=== PATIENT | male | born 1945 | race Caucasian/White ===

== ENCOUNTER 2016-05-18 20:18 | Observation (INO) | payer OTHER, BC ==
[~2016-05-18] VITALS: Ht 170.2 cm; Wt 87.5 kg
[~2016-05-18 20:18] MED LIST: ADULT LOW DOSE81 M1 PO; ALBUTEROL SULF8.5 GM IH; ALPRAZOLAM0.5 MG PO; AMITRIPTYLINE H25 MG PO; AMLODIPINE BESYL5 MG PO; ANUSOL HC,ANUCO25 MG PR; ASPIR-LOW81 MG PO; ASPIRIN325 MG PO; ASPIRIN81 M1 PO; ASPIRIN81 M2 PO; AVENTYL,PAMELOR25 MG PO; Aspirin E.C. PO; CARAFATE1 GM PO; CARBAMAZEPINE200 MG PO; CARDIZEM CD,CA180 MG PO; CARDIZEM CD180 MG PO; CELEBREX200 MG PO; CINNAMON500 MG PO; CLONAZEPAM1 MG PO; CLOPIDOGREL75 MG PO; COLACE100 MG PO; CORDARONE200 MG PO; COUMADIN,JANTOVE2 MG PO; CRESTOR10 MG PO; CRESTOR20 MG PO; CYMBALTA20 MG PO; CYMBALTA30 MG PO; DAILY VITE1 EAC1 PO; DERMATRAN TP; DIABETA,MICRONAS5 MG PO; DIABETA5 MG PO; DICYCLOMINE HCL20 MG PO; DIGOX125 MCG PO; DILAUDID2 MG PO; DILAUDID4 MG PO; DILTIAZEM 24HR180 MG PO; Diabeta,Micronase PO; ELAVIL25 MG PO; ENDOCET 5-3251 EACH PO; FORTAMET1000 M1 PO; FUROSEMIDE20 MG PO; GABAPENTIN300 MG PO; GLUCOPHAGE1000 MG PO; GLUCOVANCE 51 TABLET PO; GLYBURIDE PO; GLYBURIDE5 MG PO; HUMALOG100 UNIT/1 SC; HUMALOG100 UNIT/2 SC; HYDROMORPHONE HC2 MG PO; IMDUR30 MG PO; ISOSORBIDE MONO30 MG PO; LANTUS 10100 UNITS/ SC; LANTUS 10100 UNITS/ SQ; LANTUS 3 M100 UNITS1 SC; LASIX20 MG PO; LISINOPRIL10 MG PO; LISINOPRIL5 MG PO; LO-DOSE ASPIRIN81 M1 PO; LOPRESSOR100 M1 PO; LOPRESSOR25 MG PO; LOPRESSOR50 MG PO; LOW DOSE ASPIRI81 M1 PO; LYRICA150 MG PO; LYRICA200 MG PO; LYRICA25 MG PO; LYRICA50 MG PO; LYRICA75 MG PO; Lopressor PO; MELOXICAM15 MG PO; MEN'S MULTI-VI1 EACH PO; METFORMIN HCL1000 M1 PO; METFORMIN HCL1000 MG PO; METOPROLOL SUCC25 MG PO; MULTIPLE VITAM1 EAC1 PO; MULTIPLE VITAM1 EACH PO; NITROGLYCERIN0.4 MG SL; NITROSTAT0.4 MG SL; NORVASC5 MG PO; NovoLOG, HumaLOG SC; ONE DAILY TABL1 EAC1 PO; OXYCODONE5 MG PO; PANTOPRAZOLE SO40 MG PO; PERCOCET 5/31 TABLET PO; PHENERGAN-CODE120 ML PO; PLAVIX75 MG PO; PRADAXA150 MG PO; PRAVACHOL20 MG PO; PREDNISONE20 MG PO; PRILOSEC20 MG PO; PRINIVIL10 MG PO; PRINIVIL5 MG PO; PROTONIX40 MG PO; Plavix PO; Pradaxa PO; REFRESH TEARS15 ML BOTH EYES; REFRESH TEARS15 ML RIGHT EYE; ROXICET 5-3251 EACH PO; ST. JOSEPH ASPI81 MG PO; STOOL SOFTENER100 MG PO; SUCRALFATE1 GM PO; TOPROL XL25 MG PO; TOPROL XL50 MG PO; TRAMADOL HCL50 MG PO; TRILEPTAL300 MG PO; TYLENOL EXTRA500 MG PO; TYLENOL WITH C1 EACH PO; VALACYCLOVIR1000 MG PO; VALACYCLOVIR500 MG PO; VICODIN,LORT1 TABLET PO; ZESTRIL,PRINIVI20 MG PO; ZESTRIL10 MG PO; ZETIA10 MG; ZETIA10 MG PO; Zestril,Prinivil PO; [UNRECOGNIZED DRUG - OTHER]
[2016-05-18 20:52] LABS: HEMATOCRIT 43.5 % (38.0-50.0); MCH 30.9 PG (29.0-34.0); MCHC 34.5 G/DL (30.0-36.0); MCV 89.7 FL (86-99); MEAN PLAT.VOLUME 9.3 uM^3 (9.0-12.4); PLATELET COUNT 348 K/uL (156-360); RBC DIS.WIDTH-CV 12.8 % (11.8-14.6); RBC DIS.WIDTH-SD 41.5 % (39-53); RED BLOOD COUNT 4.85 M/uL (4.00-5.50)
[2016-05-18 20:53] LABS: WHITE BLOOD COUNT 9.7 K/uL (4.1-10.2)
[2016-05-18 21:01] LABS: CHLORIDE 100 mEq/L (99-109); POTASSIUM 5.1 mEq/L (3.7-5.4); SODIUM 134 mEq/L (136-147)
[2016-05-18 21:02] LABS: GLUCOSE 316 mg/dL (70-99)
[2016-05-18 21:04] LABS: ANION GAP 10 MEQ/L (2-14)
[2016-05-18 21:06] LABS: GFR ESTIMATE (CALCULATED) > 59 mL/min/
[2016-05-18 21:07] LABS: UREA NITROGEN (BUN) 19 mg/dL (9-23)
[2016-05-18 21:15] LABS: TROP-I INTERPRETATION NEGATIVE; TROPONIN-I < 0.01 ng/mL (0.0-0.30)
[2016-05-18] MEDS ORDERED: LEVEMIR FL100 UNIT/1 SC (22:18)
[2016-05-18 23:24] VITALS: BP 156/78
[2016-05-18 23:49] LABS: POINT-OF-CARE METER ID UU13113700
[2016-05-19 03:14] LABS: TROP-I INTERPRETATION NEGATIVE; TROPONIN-I < 0.01 ng/mL (0.0-0.30)
[2016-05-19 05:04] VITALS: BP 138/99
[2016-05-19 08:05] VITALS: BP 151/98
[2016-05-19 09:35] LABS: TROP-I INTERPRETATION NEGATIVE; TROPONIN-I < 0.01 ng/mL (0.0-0.30)
[2016-05-19 09:45] LABS: POINT-OF-CARE METER ID UU14162513
[2016-05-19 10:08] LABS: EOSINOPHIL (%) 1.7 % (0-5); EOSINOPHIL COUNT 0.2 K/uL (0-0.3); HEMATOCRIT 43.9 % (38.0-50.0); IMMATURE GRANULOCYTE (%) 0.5 % (0.0-0.7); IMMATURE GRANULOCYTE COUNT 0.1 K/uL; LYMPHOCYTE COUNT 1.7 K/uL (1.0-2.8); MCH 31.4 PG (29.0-34.0); MCHC 34.4 G/DL (30.0-36.0); MCV 91.3 FL (86-99); MONOCYTE (%) 14.8 % (3-12); MONOCYTE COUNT 1.5 K/uL (0-0.8); NEUTROPHIL (%) 66.8 % (45-76); PLATELET COUNT 327 K/uL (156-360); RBC DIS.WIDTH-SD 42.9 % (39-53); RED BLOOD COUNT 4.81 M/uL (4.00-5.50); WHITE BLOOD COUNT 10.4 K/uL (4.1-10.2)
[2016-05-19 10:19] LABS: AMYLASE 20 IU/L (1-118); ANION GAP 11 MEQ/L (2-14); CHLORIDE 97 MEQ/L (99-109); POTASSIUM 4.6 MEQ/L (3.7-5.4); SAMPLE HEMOLYSIS CHECK 0; SAMPLE ICTERIC CHECK 0; SAMPLE LIPEMIA CHECK 0; SODIUM 134 MEQ/L (136-147); TOTAL BILIRUBIN 0.5 MG/DL (0.0-1.0)
[2016-05-19 10:25] LABS: ALKALINE PHOSPHATASE 94 IU/L (3-129); GFR ESTIMATE (CALCULATED) > 59 mL/min/; GLUCOSE 190 mg/dL (70-99); LIPASE 6 U/L (1.0-51.0); UREA NITROGEN (BUN) 19 mg/dL (9-23)
[2016-05-19 10:32] LABS: COLOR YELLOW ((YELLOW))
[2016-05-19 10:33] LABS: ADD MIUA? NO; BILIRUBIN NEGATIVE; BLOOD NEGATIVE; GLUCOSE (STRIP) 2000 OR MORE; KETONES NEGATIVE; LEUKOCYTES NEGATIVE; NITRITE NEGATIVE; PROTEIN (STRIP) NEGATIVE; SPECIFIC GRAVITY 1.018 (1.000-1.030); UROBILINOGEN 0.2 MG/DL (0.2-1.0)
[2016-05-19 12:00] VITALS: BP 138/89
[2016-05-19 12:32] LABS: POINT-OF-CARE METER ID UU14162513
[2016-05-19] MEDS ORDERED: DIGOXIN125 MCG PO (15:25)
[2016-05-19] MEDS ORDERED: MIRALAX17 GM PO (15:25)
[2016-05-19 16:00] VITALS: BP 148/74
== END 2016-05-19 18:16 | disposition home or self-care (01) ==
LOC: EME 20:18 → EDOF 22:08 → 5WEST 22:08
PROVIDERS: Family Medicine; Hospitalist; Physician Assistant
DX: R10.13 Epigastric pain (principal); I48.91 Unspecified atrial fibrillation; K59.00 Constipation, unspecified; Z79.4 Long term (current) use of insulin; I25.10 Atherosclerotic heart disease of native coronary artery without angina pectoris; I25.2 Old myocardial infarction; Z95.5 Presence of coronary angioplasty implant and graft; I42.9 Cardiomyopathy, unspecified; Z88.0 Allergy status to penicillin; E11.9 Type 2 diabetes mellitus without complications; I10 Essential (primary) hypertension; E78.5 Hyperlipidemia, unspecified; Z79.82 Long term (current) use of aspirin
CPT/HCPCS: 71020; 74000; 74176; 80048; 80053; 81003; 82150; 82948; 83690; 84484; 85025; 85027; 93005; 99281; 99285; G0378; J1815

== ENCOUNTER 2016-07-04 23:33 | Emergency (ER) | payer OTHER, BC ==
[~2016-07-04] VITALS: Ht 170.2 cm; Wt 88.6 kg
[~2016-07-04 23:33] MED LIST changes: +DIGOXIN125 MCG PO; +LEVEMIR FL100 UNIT/1 SC; +MIRALAX17 GM PO
[2016-07-05 00:04] LABS: BASOPHIL COUNT 0.1 K/uL (0-0.1); EOSINOPHIL (%) 4.5 % (0-5); EOSINOPHIL COUNT 0.3 K/uL (0-0.3); HEMATOCRIT 44.5 % (38.0-50.0); IMMATURE GRANULOCYTE (%) 0.4 % (0.0-0.7); INSTRUMENT ABS NEUTROPHIL CT 3.8 K/uL; LYMPHOCYTE COUNT 1.9 K/uL (1.0-2.8); MCV 90.8 FL (86-99); MEAN PLAT.VOLUME 9.1 uM^3 (9.0-12.4); MONOCYTE (%) 11.8 % (3-12); MONOCYTE COUNT 0.8 K/uL (0-0.8); NEUTROPHIL (%) 54.3 % (45-76); NEUTROPHIL COUNT 3.8 K/uL (1.8-6.4); PLATELET COUNT 372 K/uL (156-360); RBC DIS.WIDTH-CV 12.5 % (11.8-14.6); RBC DIS.WIDTH-SD 41.4 % (39-53); WHITE BLOOD COUNT 6.9 K/uL (4.1-10.2)
[2016-07-05 00:17] LABS: CHLORIDE 107 mEq/L (99-109); POTASSIUM 4.3 mEq/L (3.7-5.4); SODIUM 139 mEq/L (136-147)
[2016-07-05 00:18] LABS: GLUCOSE 129 mg/dL (70-99)
[2016-07-05 00:20] LABS: ANION GAP 9 MEQ/L (2-14)
[2016-07-05 00:22] LABS: GFR ESTIMATE (CALCULATED) 53 mL/min/
[2016-07-05 00:23] LABS: UREA NITROGEN (BUN) 17 mg/dL (9-23)
[2016-07-05 00:25] LABS: TROP-I INTERPRETATION NEGATIVE; TROPONIN-I 0.02 ng/mL (0.0-0.30)
[2016-07-05 01:19] LABS: POINT-OF-CARE METER ID UU14100415
[2016-07-05 02:20] LABS: POINT-OF-CARE METER ID UU14100415
[2016-07-05 03:28] LABS: POINT-OF-CARE METER ID UU14100415
[2016-07-05 03:44] VITALS: BP 108/70
== END 2016-07-05 03:45 | disposition left against medical advice (07) ==
LOC: EME → EDBD 23:33 → EME 23:33
PROVIDERS: Emergency Medicine
DX: T38.3X1A Poisoning by insulin and oral hypoglycemic [antidiabetic] drugs, accidental (unintentional), initial encounter (principal); R07.9 Chest pain, unspecified; E11.9 Type 2 diabetes mellitus without complications; J45.909 Unspecified asthma, uncomplicated; I11.0 Hypertensive heart disease with heart failure; I50.9 Heart failure, unspecified; E78.5 Hyperlipidemia, unspecified; I25.2 Old myocardial infarction; G89.29 Other chronic pain; K21.9 Gastro-esophageal reflux disease without esophagitis; Z95.1 Presence of aortocoronary bypass graft; Z98.61 Coronary angioplasty status; Z79.4 Long term (current) use of insulin
CPT/HCPCS: 71010; 80048; 82948; 84484; 85025; 93005; 99281; 99285

== ENCOUNTER 2016-12-04 12:36 | Observation (INO) | payer OTHER, BC ==
[~2016-12-04] VITALS: Ht 170.2 cm; Wt 90.6 kg
[~2016-12-04 12:36] MED LIST changes: +METOPROLOL TART50 MG PO
[2016-12-04 13:45] LABS: HEMATOCRIT 44.3 % (38.0-50.0); MCHC 33.9 G/DL (30.0-36.0); MCV 91.5 FL (86-99); MEAN PLAT.VOLUME 9.4 uM^3 (9.0-12.4); PLATELET COUNT 317 K/uL (156-360); RBC DIS.WIDTH-CV 12.9 % (11.8-14.6); RBC DIS.WIDTH-SD 43.1 % (39-53); RED BLOOD COUNT 4.84 M/uL (4.00-5.50); WHITE BLOOD COUNT 6.6 K/uL (4.1-10.2)
[2016-12-04 13:56] LABS: CHLORIDE 100 mEq/L (99-109); POTASSIUM 4.6 mEq/L (3.7-5.4); SODIUM 134 mEq/L (136-147)
[2016-12-04 13:57] LABS: GLUCOSE 199 mg/dL (70-99)
[2016-12-04 13:59] LABS: ANION GAP 9 MEQ/L (2-14)
[2016-12-04 14:01] LABS: GFR ESTIMATE (CALCULATED) > 59 mL/min/
[2016-12-04 14:02] LABS: UREA NITROGEN (BUN) 19 mg/dL (9-23)
[2016-12-04 14:07] LABS: TROP-I INTERPRETATION NEGATIVE; TROPONIN-I < 0.01 ng/mL (0.0-0.30)
[2016-12-04] MEDS ORDERED: MIRALAX17 GM PO (16:10)
[2016-12-04] MEDS ORDERED: HUMALOG100 UNIT/2 SC ×3 (16:11→16:13)
[2016-12-04] MEDS ORDERED: ZETIA10 MG PO (16:14)
[2016-12-04] MEDS ORDERED: TRIAMCINOLONE A15 G2 TP (16:15)
[2016-12-04] MEDS ORDERED: DOXYCYCLINE HYC20 MG PO (16:16)
[2016-12-04 16:36] VITALS: BP 106/72
[2016-12-04 17:37] LABS: POINT-OF-CARE METER ID UU13113700
[2016-12-04 19:00] LABS: TROP-I INTERPRETATION NEGATIVE; TROPONIN-I < 0.01 ng/mL (0.0-0.30)
[2016-12-04 20:00] VITALS: BP 104/73
[2016-12-04 21:10] LABS: POINT-OF-CARE METER ID UU13113700
[2016-12-04 23:54] VITALS: BP 122/78
[2016-12-05 01:41] LABS: TROP-I INTERPRETATION NEGATIVE; TROPONIN-I < 0.01 ng/mL (0.0-0.30)
[2016-12-05 04:00] VITALS: BP 121/71
[2016-12-05 07:26] LABS: TROP-I INTERPRETATION NEGATIVE; TROPONIN-I 0.01 ng/mL (0.0-0.30)
[2016-12-05 07:35] VITALS: BP 139/88
[2016-12-05 07:39] LABS: POINT-OF-CARE METER ID UU13113700
== END 2016-12-05 10:58 | disposition home or self-care (01) ==
LOC: EME 12:36 → ENRESERV 15:28 → EDOF 15:31 → 5WEST 15:31 → ENRESERV 15:32 → 5WEST 16:11
PROVIDERS: Emergency Medicine; Hospitalist
DX: R07.9 Chest pain, unspecified (principal); I25.10 Atherosclerotic heart disease of native coronary artery without angina pectoris; Z95.5 Presence of coronary angioplasty implant and graft; I48.2 Chronic atrial fibrillation; Z79.01 Long term (current) use of anticoagulants; E11.65 Type 2 diabetes mellitus with hyperglycemia; I25.5 Ischemic cardiomyopathy; I10 Essential (primary) hypertension; E78.5 Hyperlipidemia, unspecified; K21.9 Gastro-esophageal reflux disease without esophagitis; E87.1 Hypo-osmolality and hyponatremia; Z86.19 Personal history of other infectious and parasitic diseases; E66.9 Obesity, unspecified; Z68.31 Body mass index [BMI] 31.0-31.9, adult; F32.9 Major depressive disorder, single episode, unspecified; Z79.4 Long term (current) use of insulin; Z91.030 Bee allergy status; Z88.1 Allergy status to other antibiotic agents; Z88.2 Allergy status to sulfonamides; Z88.0 Allergy status to penicillin
CPT/HCPCS: 71020; 80048; 82948; 84484; 85027; 93005; 99202; 99281; 99285; G0378; J1815

== ENCOUNTER 2017-05-06 23:05 | Emergency (ER) | payer OTHER ==
[~2017-05-06] VITALS: Ht 170.2 cm; Wt 91.6 kg
[~2017-05-06 23:05] MED LIST changes: +DOXYCYCLINE HYC20 MG PO; +TRIAMCINOLONE A15 G2 TP
[2017-05-07 04:32] VITALS: BP 103/51
== END 2017-05-07 04:33 | disposition home or self-care (01) ==
LOC: EME 23:05
PROVIDERS: Emergency Medicine
DX: T38.3X1A Poisoning by insulin and oral hypoglycemic [antidiabetic] drugs, accidental (unintentional), initial encounter (principal); E11.9 Type 2 diabetes mellitus without complications; Z79.4 Long term (current) use of insulin; I10 Essential (primary) hypertension; E78.5 Hyperlipidemia, unspecified; I25.2 Old myocardial infarction; Z95.1 Presence of aortocoronary bypass graft; Z95.5 Presence of coronary angioplasty implant and graft; Z86.73 Personal history of transient ischemic attack (TIA), and cerebral infarction without residual deficits; Z79.02 Long term (current) use of antithrombotics/antiplatelets
CPT/HCPCS: 82948; 99281; 99284

== ENCOUNTER 2017-07-28 17:25 | Observation (INO) | payer OTHER ==
[~2017-07-28] VITALS: Ht 170.2 cm; Wt 90.5 kg
[2017-07-28 17:46] LABS: BASOPHIL COUNT 0.1 K/uL (0-0.1); EOSINOPHIL (%) 3.8 % (0-5); EOSINOPHIL COUNT 0.3 K/uL (0-0.3); HEMATOCRIT 44.6 % (38.0-50.0); HEMOGLOBIN 15.2 G/DL (12.5-16.6); IMMATURE GRANULOCYTE (%) 0.6 % (0.0-0.7); LYMPHOCYTE (%) 27.8 % (15-42); LYMPHOCYTE COUNT 1.9 K/uL (1.0-2.8); MCH 31.9 PG (29.0-34.0); MCHC 34.1 G/DL (30.0-36.0); MCV 93.5 FL (86-99); MONOCYTE (%) 12.7 % (3-12); MONOCYTE COUNT 0.9 K/uL (0-0.8); NEUTROPHIL (%) 54.1 % (45-76); NEUTROPHIL COUNT 3.7 K/uL (1.8-6.4); PLATELET COUNT 334 K/uL (156-360); RBC DIS.WIDTH-CV 13.1 % (11.8-14.6); RBC DIS.WIDTH-SD 44.9 % (39-53); RED BLOOD COUNT 4.77 M/uL (4.00-5.50); WHITE BLOOD COUNT 6.8 K/uL (4.1-10.2)
[2017-07-28 17:58] LABS: PTT 42.8 SEC (25-37)
[2017-07-28 18:04] LABS: AMYLASE 44 IU/L (1-118); CHLORIDE 103 mEq/L (99-109); POTASSIUM 4.7 mEq/L (3.7-5.4); SODIUM 139 mEq/L (136-147)
[2017-07-28 18:06] LABS: GLUCOSE 366 mg/dL (70-99)
[2017-07-28 18:09] LABS: SERUM ETHYL ALCOHOL < 10 mg/dL
[2017-07-28 18:10] LABS: CREATININE 1.2 mg/dL (0.6-1.3); GFR ESTIMATE (CALCULATED) > 59 mL/min/ (58.99-99999)
[2017-07-28 18:11] LABS: UREA NITROGEN (BUN) 17 mg/dL (9-23)
[2017-07-28 18:13] LABS: LIPASE 21 U/L (1.0-51.0)
[2017-07-28 18:19] LABS: TROP-I INTERPRETATION NEGATIVE; TROPONIN-I < 0.01 ng/mL (0.0-0.30)
[2017-07-28 19:52] LABS: CARBON DIOXIDE (BICARBONATE) 26.2 MEQ/L (20-31)
[2017-07-28 19:59] LABS: APPEARANCE CLEAR ((CLEAR)); BILIRUBIN NEGATIVE; BLOOD NEGATIVE; COLOR STRAW ((YELLOW)); GLUCOSE (STRIP) >=500; KETONES NEGATIVE; LEUKOCYTES NEGATIVE; NITRITE NEGATIVE; PROTEIN (STRIP) NEGATIVE; SPECIFIC GRAVITY 1.025 (1.000-1.030); UCUL ADDED? NO; UROBILINOGEN 0.2 MG/DL (0.2-1.0)
[2017-07-28 20:05] LABS: AMPHETAMINE NEGATIVE (500 ng/mL); BARBITURATES NEGATIVE (200 ng/mL); BENZODIAZEPINES NEGATIVE (150 ng/mL); BUPRENORPHINE NEGATIVE (10 ng/mL); COCAINE NEGATIVE (150 ng/mL); METHADONE NEGATIVE (200 ng/mL); METHAMPHETAMINE NEGATIVE (500 ng/mL); OPIATES (MORPHINE) NEGATIVE (100 ng/mL); OXYCODONE NEGATIVE (100 ng/mL); PHENCYCLIDINE NEGATIVE (25 ng/mL); PROPOXYPHENE NEGATIVE (300 ng/mL); THC CANNABINOIDS NEGATIVE (50 ng/mL); TRICYCLIC ANTIDEPRESSANTS NEGATIVE (300 ng/mL)
[2017-07-28] MEDS ORDERED: MIRTAZAPINE15 MG PO (21:02)
[2017-07-28] MEDS ORDERED: KENALOG,ARISTOC80 G1 TP (21:03)
[2017-07-28] MEDS ORDERED: PANTOPRAZOLE SO40 MG PO (21:03)
[2017-07-28] MEDS ORDERED: OXCARBAZEPINE300 MG PO (21:03)
[2017-07-28] MEDS ORDERED: LISINOPRIL5 MG PO (21:03)
[2017-07-28] MEDS ORDERED: DULOXETINE HCL20 MG PO (21:03)
[2017-07-28] MEDS ORDERED: CLOPIDOGREL75 MG PO (21:04)
[2017-07-28] MEDS ORDERED: EZETIMIBE10 MG PO (21:04)
[2017-07-28] MEDS ORDERED: PRAVASTATIN SOD20 MG PO (21:04)
[2017-07-28 23:17] LABS: HDL CHOLESTEROL 68 MG/DL (Desirable>=40); LDL CHOLESTEROL 101 mg/dL (Desirable<100); NON-HDL CHOLESTEROL 166 mg/dL (Desirable<160); TOTAL CHOLESTEROL 234 mg/dL (Desirable<200); TRIGLYCERIDES 326 MG/DL (Normal: <150)
[2017-07-29] VITALS (7 sets, daily range): BP systolic 116–194; BP diastolic 75–97
[2017-07-29 06:44] LABS: HEMATOCRIT 41.7 % (38.0-50.0); HEMOGLOBIN 14.5 G/DL (12.5-16.6); MCH 32.3 PG (29.0-34.0); MCHC 34.8 G/DL (30.0-36.0); MCV 92.9 FL (86-99); PLATELET COUNT 298 K/uL (156-360); RBC DIS.WIDTH-CV 13.1 % (11.8-14.6); RBC DIS.WIDTH-SD 44.4 % (39-53); RED BLOOD COUNT 4.49 M/uL (4.00-5.50); WHITE BLOOD COUNT 7.5 K/uL (4.1-10.2)
[2017-07-29 07:14] LABS: ALBUMIN 3.6 G/DL (3.2-4.8); ALKALINE PHOSPHATASE 71 IU/L (3-129); ALT (GPT) 17 IU/L (3-49); AST (GOT) 19 IU/L (2-34); CHLORIDE 107 MEQ/L (99-109); CREATININE 0.9 MG/DL (0.6-1.3); GFR ESTIMATE (CALCULATED) > 59 mL/min/ (58.99-99999); POTASSIUM 4.4 MEQ/L (3.7-5.4); SODIUM 140 MEQ/L (136-147); TOTAL BILIRUBIN 0.6 MG/DL (0.0-1.0); TOTAL PROTEIN 5.7 G/DL (6.4-8.3); UREA NITROGEN (BUN) 14 mg/dL (9-23)
[2017-07-29 07:24] LABS: GLUCOSE 149 mg/dL (70-99)
[2017-07-29 11:17] LABS: HEMOGLOBIN A1c (GLYCOHEMOGLOB) 11.2 % (Below 5.7)
[2017-07-30 03:47] VITALS: BP 181/105
[2017-07-30 04:02] VITALS: BP 166/88
[2017-07-30 06:41] LABS: BASOPHIL COUNT 0.1 K/uL (0-0.1); EOSINOPHIL (%) 3.5 % (0-5); EOSINOPHIL COUNT 0.3 K/uL (0-0.3); HEMATOCRIT 42.1 % (38.0-50.0); HEMOGLOBIN 14.4 G/DL (12.5-16.6); IMMATURE GRANULOCYTE (%) 0.4 % (0.0-0.7); LYMPHOCYTE (%) 25.7 % (15-42); LYMPHOCYTE COUNT 2.1 K/uL (1.0-2.8); MCH 31.9 PG (29.0-34.0); MCHC 34.2 G/DL (30.0-36.0); MCV 93.1 FL (86-99); MONOCYTE (%) 11.8 % (3-12); NEUTROPHIL (%) 57.6 % (45-76); NEUTROPHIL COUNT 4.8 K/uL (1.8-6.4); PLATELET COUNT 295 K/uL (156-360); RBC DIS.WIDTH-SD 44.5 % (39-53); RED BLOOD COUNT 4.52 M/uL (4.00-5.50); WHITE BLOOD COUNT 8.3 K/uL (4.1-10.2)
[2017-07-30 07:09] LABS: CHLORIDE 103 MEQ/L (99-109); CREATININE 0.9 MG/DL (0.6-1.3); GFR ESTIMATE (CALCULATED) > 59 mL/min/ (58.99-99999); GLUCOSE 165 mg/dL (70-99); MAGNESIUM 1.6 mg/dl (1.3-2.7); POTASSIUM 4.2 MEQ/L (3.7-5.4); SODIUM 137 MEQ/L (136-147); UREA NITROGEN (BUN) 15 mg/dL (9-23)
[2017-07-30 07:19] VITALS: BP 182/88
[2017-07-30 11:10] VITALS: BP 153/89
[2017-07-30] MEDS ORDERED: PRAVASTATIN SOD40 MG PO (11:58)
[2017-07-30 15:31] VITALS: BP 122/80
== END 2017-07-30 16:19 | disposition home or self-care (01) ==
LOC: EME 17:25 → EDOF 21:34 → 5SOUTH 21:34 → EDOF 21:34 → ENRESERV 21:36 → EDOF 22:13 → ENRESERV 22:17 → 5SOUTH 07-29 00:26 → ENPENDDIS 07-30 15:20 → 5SOUTH 07-30 16:19
PROVIDERS: Emergency Medicine; Internal Medicine; Physician Assistant
DX: G45.9 Transient cerebral ischemic attack, unspecified (principal); I11.0 Hypertensive heart disease with heart failure; I50.9 Heart failure, unspecified; E78.5 Hyperlipidemia, unspecified; I25.10 Atherosclerotic heart disease of native coronary artery without angina pectoris; E11.65 Type 2 diabetes mellitus with hyperglycemia; I48.2 Chronic atrial fibrillation; Z86.73 Personal history of transient ischemic attack (TIA), and cerebral infarction without residual deficits; G89.29 Other chronic pain; B02.9 Zoster without complications; I27.20 Pulmonary hypertension, unspecified; Z79.01 Long term (current) use of anticoagulants; Z79.02 Long term (current) use of antithrombotics/antiplatelets; Z79.4 Long term (current) use of insulin; F32.9 Major depressive disorder, single episode, unspecified; K21.9 Gastro-esophageal reflux disease without esophagitis; Z95.5 Presence of coronary angioplasty implant and graft; Z88.0 Allergy status to penicillin; Z88.1 Allergy status to other antibiotic agents; Z91.030 Bee allergy status
CPT/HCPCS: 70450; 71046; 80047; 80048; 80053; 80061; 81003; 82150; 82803; 82948; 83036; 83690; 83735; 83880; 83930; 84484; 85025; 85027; 85610; 85730; 86850; 86900; 86901; 93880; 99281; 99285; C8923; G0378; G0480; G8978 GP CH; G8979 GP CH; G8980 GP CH; G8987 GO CH; G8988 GO CH; G8989 GO CH; J1815; J7030

== ENCOUNTER 2017-09-02 13:32 | Emergency (ER) | payer OTHER ==
[~2017-09-02] VITALS: Ht 170.2 cm; Wt 95.0 kg
[~2017-09-02 13:32] MED LIST changes: +DULOXETINE HCL20 MG PO; +EZETIMIBE10 MG PO; +KENALOG,ARISTOC80 G1 TP; +MIRTAZAPINE15 MG PO; +OXCARBAZEPINE300 MG PO; +PRAVASTATIN SOD20 MG PO; +PRAVASTATIN SOD40 MG PO
[2017-09-02 15:26] LABS: HEMATOCRIT 41.8 % (38.0-50.0); HEMOGLOBIN 14.7 G/DL (12.5-16.6); MCH 32.4 PG (29.0-34.0); MCHC 35.2 G/DL (30.0-36.0); MCV 92.1 FL (86-99); PLATELET COUNT 316 K/uL (156-360); RBC DIS.WIDTH-CV 12.7 % (11.8-14.6); RBC DIS.WIDTH-SD 42.8 % (39-53); RED BLOOD COUNT 4.54 M/uL (4.00-5.50); WHITE BLOOD COUNT 5.9 K/uL (4.1-10.2)
[2017-09-02 15:36] LABS: CHLORIDE 105 mEq/L (99-109); POTASSIUM 4.6 mEq/L (3.7-5.4); SODIUM 137 mEq/L (136-147)
[2017-09-02 15:37] LABS: GLUCOSE 213 mg/dL (70-99)
[2017-09-02 15:41] LABS: GFR ESTIMATE (CALCULATED) > 59 mL/min/ (58.99-99999)
[2017-09-02 15:42] LABS: UREA NITROGEN (BUN) 17 mg/dL (9-23)
[2017-09-02 15:53] VITALS: BP 115/83
== END 2017-09-02 15:55 | disposition home or self-care (01) ==
LOC: EXP 13:32 → EME 13:32 → EXP 15:55
DX: R55 Syncope and collapse (principal); S09.90XA Unspecified injury of head, initial encounter; W07.XXXA Fall from chair, initial encounter; Z86.73 Personal history of transient ischemic attack (TIA), and cerebral infarction without residual deficits; E11.9 Type 2 diabetes mellitus without complications; Z79.4 Long term (current) use of insulin; Z79.01 Long term (current) use of anticoagulants; I11.0 Hypertensive heart disease with heart failure; I50.9 Heart failure, unspecified; I25.2 Old myocardial infarction; F32.9 Major depressive disorder, single episode, unspecified; J45.909 Unspecified asthma, uncomplicated; E78.5 Hyperlipidemia, unspecified; F41.9 Anxiety disorder, unspecified; K21.9 Gastro-esophageal reflux disease without esophagitis; Z95.5 Presence of coronary angioplasty implant and graft; Z95.1 Presence of aortocoronary bypass graft; Z88.0 Allergy status to penicillin
CPT/HCPCS: 70450; 71046; 80048; 85027; 93005; 99281; 99284

== ENCOUNTER 2017-09-08 07:40 | Emergency (ER) | payer OTHER ==
[~2017-09-08] VITALS: Ht 170.2 cm; Wt 94.4 kg
[2017-09-08 08:34] LABS: BASOPHIL COUNT 0.1 K/uL (0-0.1); EOSINOPHIL (%) 3.1 % (0-5); EOSINOPHIL COUNT 0.2 K/uL (0-0.3); HEMATOCRIT 41.8 % (38.0-50.0); HEMOGLOBIN 14.5 G/DL (12.5-16.6); IMMATURE GRANULOCYTE (%) 0.4 % (0.0-0.7); LYMPHOCYTE (%) 15.9 % (15-42); LYMPHOCYTE COUNT 1.2 K/uL (1.0-2.8); MCH 32.2 PG (29.0-34.0); MCHC 34.7 G/DL (30.0-36.0); MCV 92.7 FL (86-99); MONOCYTE (%) 10.1 % (3-12); MONOCYTE COUNT 0.7 K/uL (0-0.8); NEUTROPHIL (%) 69.5 % (45-76); NEUTROPHIL COUNT 5.1 K/uL (1.8-6.4); PLATELET COUNT 287 K/uL (156-360); RBC DIS.WIDTH-CV 12.9 % (11.8-14.6); RBC DIS.WIDTH-SD 43.8 % (39-53); RED BLOOD COUNT 4.51 M/uL (4.00-5.50); WHITE BLOOD COUNT 7.3 K/uL (4.1-10.2)
[2017-09-08 08:45] LABS: ALBUMIN 4.1 g/dL (3.2-4.8); CHLORIDE 103 mEq/L (99-109); POTASSIUM 4.5 mEq/L (3.7-5.4); SODIUM 138 mEq/L (136-147)
[2017-09-08 08:48] LABS: GLUCOSE 299 mg/dL (70-99); TOTAL PROTEIN 6.7 g/dL (6.4-8.3)
[2017-09-08 08:49] LABS: TOTAL BILIRUBIN 0.3 mg/dL (0.0-1.0)
[2017-09-08 08:51] LABS: ALKALINE PHOSPHATASE 105 IU/L (3-129); CREATININE 1.1 mg/dL (0.6-1.3); GFR ESTIMATE (CALCULATED) > 59 mL/min/ (58.99-99999)
[2017-09-08 08:52] LABS: UREA NITROGEN (BUN) 17 mg/dL (9-23)
[2017-09-08 08:53] LABS: AST (GOT) 20 IU/L (2-34)
[2017-09-08 08:54] LABS: ALT (GPT) 21 IU/L (3-49)
[2017-09-08 08:55] LABS: LIPASE 14 U/L (1.0-51.0)
[2017-09-08 08:56] LABS: TROP-I INTERPRETATION NEGATIVE; TROPONIN-I < 0.01 ng/mL (0.0-0.30)
[2017-09-08] MEDS ORDERED: BENTYL20 MG PO (10:35)
[2017-09-08] MEDS ORDERED: ZOFRAN4 MG PO (10:35)
[2017-09-08 11:05] VITALS: BP 119/101
== END 2017-09-08 11:05 | disposition home or self-care (01) ==
LOC: EME 07:40
PROVIDERS: Emergency Medicine
DX: R10.84 Generalized abdominal pain (principal); R51 Headache; J45.909 Unspecified asthma, uncomplicated; I11.0 Hypertensive heart disease with heart failure; I50.9 Heart failure, unspecified; E11.9 Type 2 diabetes mellitus without complications; Z79.4 Long term (current) use of insulin; I25.2 Old myocardial infarction; I48.91 Unspecified atrial fibrillation; F32.9 Major depressive disorder, single episode, unspecified; K21.9 Gastro-esophageal reflux disease without esophagitis; Z86.73 Personal history of transient ischemic attack (TIA), and cerebral infarction without residual deficits; Z95.5 Presence of coronary angioplasty implant and graft; Z95.1 Presence of aortocoronary bypass graft; Z88.0 Allergy status to penicillin
CPT/HCPCS: 70450; 71045; 74177; 80053; 82948; 83690; 84484; 85025; 85610; 85730; 93005; 99281; 99285; J1885; J2765; J7030